=== PATIENT | female | born 2000 | race Two or more races ===

== ENCOUNTER 2022-07-25 16:50 | Emergency (ER) | payer OTHER ==
[~2022-07-25] VITALS: Ht 160 cm; Wt 90.7 kg
[2022-07-25] MEDS ORDERED: LEVSIN/SL0.125 MG SL (20:35)
[2022-07-25] MEDS ORDERED: CARAFATE1 GM PO (20:35)
[2022-07-25] MEDS ORDERED: ZOFRAN8 MG PO (20:35)
[2022-07-25] MEDS ORDERED: PEPCID AC20 MG PO (20:35)
== END 2022-07-25 20:47 | disposition home or self-care (01) ==
LOC: ER 16:50
DX: K29.70 Gastritis, unspecified, without bleeding (principal); Z88.0 Allergy status to penicillin; Z91.018 Allergy to other foods

== ENCOUNTER 2022-07-27 20:48 | Emergency (ER) | payer OTHER ==
[~2022-07-27] VITALS: Ht 170.2 cm; Wt 102.1 kg
[~2022-07-27 20:48] MED LIST: CARAFATE1 GM PO; LEVSIN/SL0.125 MG SL; PEPCID AC20 MG PO; ZOFRAN8 MG PO
[2022-07-28] MEDS ORDERED: PEPCID40 MG PO (03:25)
[2022-07-28] MEDS ORDERED: B12 ACTIVE1000 MCG PO (03:25)
== END 2022-07-28 03:50 ==
LOC: ER 20:48
DX: K29.70 Gastritis, unspecified, without bleeding (principal); R51.9 Headache, unspecified; Z88.0 Allergy status to penicillin; Z91.018 Allergy to other foods; Z20.822 Contact with and (suspected) exposure to COVID-19

== ENCOUNTER 2022-11-11 22:07 | Emergency (ER) | payer OTHER ==
[~2022-11-11] VITALS: Ht 170.2 cm; Wt 97.5 kg
[~2022-11-11 22:07] MED LIST changes: +B12 ACTIVE1000 MCG PO; +PEPCID40 MG PO
== END 2022-11-12 05:28 | disposition home or self-care (01) ==
LOC: ER 22:07
DX: J45.998 Other asthma (principal); Z20.822 Contact with and (suspected) exposure to COVID-19; Z88.0 Allergy status to penicillin; Z91.018 Allergy to other foods; Z91.09 Other allergy status, other than to drugs and biological substances

== ENCOUNTER → 2023-03-04 | Emergency (ER) | payer OTHER ==
[~2023-03-04] VITALS: Ht 170.2 cm; Wt 108.9 kg
[~2023-03-04] MED LIST changes: +FLOVENT HFA12 GM IH; +PROAIR RESPICL90 MCG IH
== END | disposition left against medical advice (07) ==
LOC: ER 22:21
DX: Z53.21 Procedure and treatment not carried out due to patient leaving prior to being seen by health care provider (principal)